=== PATIENT | male | born 1970 | race Caucasian/White ===

== ENCOUNTER 2018-05-18 04:17 | Emergency (ER) | payer OTHER ==
[~2018-05-18] VITALS: Ht 193 cm; Wt 105.0 kg
[~2018-05-18 04:17] MED LIST: CEPH500C5 PO; VARE0.5T PO
[2018-05-18 04:19] VITALS: BP 125/72
== END 2018-05-18 05:11 | disposition home or self-care (01) ==
LOC: ER 04:18
DX: M25.531 Pain in right wrist (principal); E78.00 Pure hypercholesterolemia, unspecified; I10 Essential (primary) hypertension; G89.29 Other chronic pain; Z98.890 Other specified postprocedural states; Z91.013 Allergy to seafood; Z91.030 Bee allergy status; Z79.2 Long term (current) use of antibiotics; Z79.899 Other long term (current) drug therapy; Y08.89XA Assault by other specified means, initial encounter; Y93.89 Activity, other specified; Y92.89 Other specified places as the place of occurrence of the external cause; Y99.8 Other external cause status
CPT/HCPCS: 29125; 73110; 99283

== ENCOUNTER 2020-02-10 23:10 | Outpatient (CLI) | payer BC ==
[~2020-02-10 23:10] MED LIST changes: -CEPH500C5 PO
== END 2020-02-10 23:59 | disposition home or self-care (01) ==
LOC: RAD 23:10
DX: M77.31 Calcaneal spur, right foot (principal); M79.671 Pain in right foot
CPT/HCPCS: 73630

== ENCOUNTER 2020-02-18 23:21 | Outpatient (CLI) | payer BC ==
[2020-02-19 03:41] LABS: BASOPHILS # (AUTO) 0.1 X10'3 (0-0.2); BASOPHILS % (AUTO) 0.6 % (0-1); EOSINOPHILS # (AUTO) 0.2 X10'3 (0-0.9); EOSINOPHILS % (AUTO) 1.5 % (0-6); HEMATOCRIT 45.7 % (42.0-52.0); HEMOGLOBIN 15.6 g/dl (14.0-17.9); LYMPHOCYTES % (AUTO) 35.2 % (21-51); MEAN CORPUSCULAR HEMOGLOBIN 32.3 PG (27.0-31.0); MEAN CORPUSCULAR HGB CONC 34.1 g/dL (33.0-36.5); MEAN CORPUSCULAR VOLUME 94.7 FL (78-98); MEAN PLATELET VOLUME 7.8 FL (7.4-10.4); MONOCYTES # (AUTO) 0.6 X10'3 (0-0.9); MONOCYTES % (AUTO) 5.7 % (2-12); NEUTROPHILS # (AUTO) 6.5 X10'3 (1.8-7.7); PLATELET COUNT 247 X10'3 (140-440); RED BLOOD COUNT 4.83 X10'6 (4.70-6.10); RED CELL DISTRIBUTION WIDTH 13.9 % (11.5-14.5); WHITE BLOOD COUNT 11.4 X10'3 (4.5-11.0)
[2020-02-19 03:57] LABS: ALANINE AMINOTRANSFERASE 34 U/L (12-78); ALBUMIN/GLOBULIN RATIO 1.2 (1.1-1.5); ALKALINE PHOSPHATASE 72 IU/L (46-116); ANION GAP 10 (8-16); ASPARTATE AMINO TRANSFERASE 10 U/L (10-37); BILIRUBIN,TOTAL 0.2 MG/DL (0.1-1.0); BLOOD UREA NITROGEN 17 MG/DL (7-18); BUN/CREATININE RATIO 15.9 (5.4-32.0); CALCIUM 9.3 MG/DL (8.5-10.1); CHLORIDE 103 MMOL/L (99-107); CHOL/HDL RATIO 11.8 (0.00-4.99); CHOLESTEROL 272 MG/DL (0-200); CREATININE 1.07 MG/DL (0.60-1.10); GLUCOSE 143 MG/DL (70-104); HDL CHOLESTEROL 23 MG/DL (35-60); LDL CHOLESTEROL 193 MG/DL (50-100); POTASSIUM 3.6 MMOL/L (3.5-5.1); SODIUM 139 MMOL/L (135-145); TOTAL CARBON DIOXIDE 26.3 MMOL/L (24-32); TOTAL PROTEIN 7.4 G/DL (6.4-8.2); TRIGLYCERIDES 484 MG/DL (20-135); eGFR 73 ML/MIN
== END 2020-02-18 23:59 | disposition home or self-care (01) ==
LOC: LAB 23:21
PROVIDERS: ATTEND Family Medicine
DX: Z00.00 Encounter for general adult medical examination without abnormal findings (principal)
CPT/HCPCS: 36415; 80053; 80061; 85025

== ENCOUNTER 2020-05-22 00:05 | Outpatient (CLI) | payer BC ==
[2020-05-22 13:40] LABS: ALANINE AMINOTRANSFERASE 39 U/L (12-78); ALBUMIN 4.3 G/DL (3.4-5.0); ALBUMIN/GLOBULIN RATIO 1.2 (1.1-1.5); ALKALINE PHOSPHATASE 60 IU/L (46-116); ASPARTATE AMINO TRANSFERASE 23 U/L (10-37); BILIRUBIN,DIRECT 0.1 MG/DL (0-0.3); BILIRUBIN,TOTAL 0.5 MG/DL (0.1-1.0); CHOL/HDL RATIO 7.1 (0.00-4.99); CHOLESTEROL 220 MG/DL (0-200); HDL CHOLESTEROL 31 MG/DL (35-60); LDL CHOLESTEROL 145 MG/DL (50-100); TOTAL PROTEIN 7.8 G/DL (6.4-8.2); TRIGLYCERIDES 227 MG/DL (20-135)
== END 2020-05-22 23:59 | disposition home or self-care (01) ==
LOC: LAB 00:05
PROVIDERS: ATTEND Family Medicine
DX: E78.5 Hyperlipidemia, unspecified (principal)
CPT/HCPCS: 36415; 80061; 80076

== ENCOUNTER 2021-06-22 05:03 | Emergency (ER) | payer BC ==
[~2021-06-22] VITALS: Ht 193 cm; Wt 113.6 kg
[2021-06-22 05:08] VITALS: BP 144/91
== END 2021-06-22 06:30 | disposition home or self-care (01) ==
LOC: ER 05:03
DX: B34.9 Viral infection, unspecified (principal); Z20.822 Contact with and (suspected) exposure to COVID-19; E78.00 Pure hypercholesterolemia, unspecified; I10 Essential (primary) hypertension; G89.29 Other chronic pain; Z91.013 Allergy to seafood; Z98.890 Other specified postprocedural states
CPT/HCPCS: 87635; 99283; C9803

== ENCOUNTER 2021-07-26 06:33 | Emergency (ER) | payer BC ==
[~2021-07-26] VITALS: Ht 193 cm; Wt 115.7 kg
[2021-07-26 06:36] VITALS: BP 142/79
[2021-07-26] MEDS ORDERED: PRED20TA PO (06:44)
[2021-07-26] MEDS: dexamethasone sod phosphate 10mg/ml inj PO STA (06:49)
== END 2021-07-26 06:56 | disposition home or self-care (01) ==
LOC: ER 06:34
DX: L23.7 Allergic contact dermatitis due to plants, except food (principal); I10 Essential (primary) hypertension; G89.29 Other chronic pain; M54.9 Dorsalgia, unspecified; E78.00 Pure hypercholesterolemia, unspecified; F17.210 Nicotine dependence, cigarettes, uncomplicated; Z91.013 Allergy to seafood; Z91.030 Bee allergy status
CPT/HCPCS: 99283; J1100

== ENCOUNTER 2021-08-04 06:55 | Outpatient (CLI) | payer BC ==
[~2021-08-04 06:55] MED LIST changes: +PRED20TA PO
[2021-08-04 07:50] LABS: BASOPHILS # (AUTO) 0.1 X10'3 (0-0.2); BASOPHILS % (AUTO) 0.5 % (0-1); EOSINOPHILS # (AUTO) 0.2 X10'3 (0-0.9); EOSINOPHILS % (AUTO) 1.4 % (0-6); HEMATOCRIT 43.9 % (42.0-52.0); HEMOGLOBIN 14.9 g/dl (14.0-17.9); LYMPHOCYTES # (AUTO) 4.4 X10'3 (1.1-4.8); LYMPHOCYTES % (AUTO) 36.2 % (21-51); MEAN CORPUSCULAR HEMOGLOBIN 32.4 PG (27.0-31.0); MEAN CORPUSCULAR VOLUME 95.4 FL (78-98); MEAN PLATELET VOLUME 7.8 FL (7.4-10.4); MONOCYTES # (AUTO) 0.9 X10'3 (0-0.9); MONOCYTES % (AUTO) 7.9 % (2-12); NEUTROPHILS # (AUTO) 6.5 X10'3 (1.8-7.7); PLATELET COUNT 280 X10'3 (140-440); RED CELL DISTRIBUTION WIDTH 14.3 % (11.5-14.5); WHITE BLOOD COUNT 12.1 X10'3 (4.5-11.0)
[2021-08-04 07:56] LABS: ALANINE AMINOTRANSFERASE 104 U/L (12-78); ALBUMIN/GLOBULIN RATIO 1.4 (1.1-1.5); ANION GAP 11 (8-16); ASPARTATE AMINO TRANSFERASE 60 U/L (10-37); BILIRUBIN,TOTAL 0.2 MG/DL (0.1-1.0); BLOOD UREA NITROGEN 16 MG/DL (7-18); BUN/CREATININE RATIO 15.7 (5.4-32.0); CALCIUM 8.7 MG/DL (8.5-10.1); CHLORIDE 105 MMOL/L (99-107); CHOL/HDL RATIO 7.2 (0.00-4.99); CHOLESTEROL 201 MG/DL (0-200); CREATININE 1.02 MG/DL (0.60-1.10); GLUCOSE 102 MG/DL (70-104); HDL CHOLESTEROL 28 MG/DL (35-60); LDL CHOLESTEROL 109 MG/DL (50-100); POTASSIUM 3.9 MMOL/L (3.5-5.1); SODIUM 142 MMOL/L (135-145); TOTAL CARBON DIOXIDE 25.8 MMOL/L (24-32); TOTAL PROTEIN 6.8 G/DL (6.4-8.2); TRIGLYCERIDES 422 MG/DL (20-135); eGFR 77 ML/MIN
== END 2021-08-04 23:59 | disposition home or self-care (01) ==
LOC: LAB 06:55
PROVIDERS: ATTEND Physician Assistant
DX: E78.5 Hyperlipidemia, unspecified (principal); Z76.89 Persons encountering health services in other specified circumstances
CPT/HCPCS: 36415; 80053; 80061; 85025

== ENCOUNTER 2021-11-09 05:24 | Emergency (ER) | payer BC ==
[~2021-11-09] VITALS: Ht 193 cm; Wt 115.5 kg
[~2021-11-09 05:24] MED LIST changes: -PRED20TA PO
[2021-11-09 05:28] VITALS: BP 146/74
[2021-11-09] MEDS ORDERED: SULF1TAB49 PO (06:14)
[2021-11-09] MEDS ORDERED: CEPH-585 PO (06:14)
[2021-11-09] MEDS ORDERED: cephalexin 500mg capsule PO ONE (06:15)
[2021-11-09] MEDS ORDERED: sulfamethoxazole/trimethoprim DS (800/160mg) tablet PO ONE (06:15)
== END 2021-11-09 06:25 | disposition home or self-care (01) ==
LOC: ER 05:24
DX: L03.031 Cellulitis of right toe (principal); M79.674 Pain in right toe(s); Z72.89 Other problems related to lifestyle; Z91.030 Bee allergy status; Z91.013 Allergy to seafood; Z79.2 Long term (current) use of antibiotics; Z79.899 Other long term (current) drug therapy
CPT/HCPCS: 73660; 82948; 99283

== ENCOUNTER 2022-02-21 04:20 | Emergency (ER) | payer BC ==
[~2022-02-21] VITALS: Ht 193 cm; Wt 102.7 kg
[~2022-02-21 04:20] MED LIST changes: +CEPH-585 PO
[2022-02-21] MEDS ORDERED: ondansetron/PF 4mg/2ml inj IV ONE (04:30)
[2022-02-21] MEDS ORDERED: morphine 2 MG/ML inj. syringe IV PRN (04:30)
[2022-02-21] MEDS ORDERED: normal saline 1000ML IV soln IVB ONE (04:30)
[2022-02-21] MEDS ORDERED: piperacillin/tazo 3.375gm/50ml 50 ML IV ONE (04:35)
[2022-02-21] MEDS ORDERED: iohexol 350MG/ML 100ml bottle IV ONE (04:41)
[2022-02-21 05:20] LABS: BASOPHILS # (AUTO) 0.1 X10'3 (0-0.2); BASOPHILS % (AUTO) 0.8 % (0-1); EOSINOPHILS # (AUTO) 0.1 X10'3 (0-0.9); EOSINOPHILS % (AUTO) 1.6 % (0-6); HEMATOCRIT 42.6 % (42.0-52.0); HEMOGLOBIN 15.1 g/dl (14.0-17.9); LYMPHOCYTES # (AUTO) 2.3 X10'3 (1.1-4.8); LYMPHOCYTES % (AUTO) 25.6 % (21-51); MEAN CORPUSCULAR HEMOGLOBIN 33.7 PG (27.0-31.0); MEAN CORPUSCULAR HGB CONC 35.5 g/dL (33.0-36.5); MEAN PLATELET VOLUME 7.7 FL (7.4-10.4); MONOCYTES # (AUTO) 0.7 X10'3 (0-0.9); MONOCYTES % (AUTO) 8.4 % (2-12); NEUTROPHILS # (AUTO) 5.6 X10'3 (1.8-7.7); NEUTROPHILS % (AUTO) 63.6 % (42-75); PLATELET COUNT 268 X10'3 (140-440); RED BLOOD COUNT 4.48 X10'6 (4.70-6.10); RED CELL DISTRIBUTION WIDTH 14.2 % (11.5-14.5); WHITE BLOOD COUNT 8.8 X10'3 (4.5-11.0)
[2022-02-21 05:23] LABS: APTT 32 SECONDS (22-32)
[2022-02-21 05:26] LABS: ALBUMIN 4.1 G/DL (3.4-5.0); ANION GAP 9 (8-16); BILIRUBIN,TOTAL 0.3 MG/DL (0.1-1.0); BLOOD UREA NITROGEN 17 MG/DL (7-18); BUN/CREATININE RATIO 15.6 (5.4-32.0); CALCIUM 8.9 MG/DL (8.5-10.1); CHLORIDE 102 MMOL/L (99-107); CREATININE 1.09 MG/DL (0.60-1.10); GLUCOSE 105 MG/DL (70-104); MAGNESIUM 2.1 MG/DL (1.5-2.4); POTASSIUM 3.5 MMOL/L (3.5-5.1); SODIUM 137 MMOL/L (135-145); TOTAL CARBON DIOXIDE 26.1 MMOL/L (24-32); TOTAL PROTEIN 7.4 G/DL (6.4-8.2); eGFR 71 ML/MIN
[2022-02-21 05:27] LABS: ALANINE AMINOTRANSFERASE 79 U/L (12-78); ALBUMIN/GLOBULIN RATIO 1.2 (1.1-1.5); ALKALINE PHOSPHATASE 70 IU/L (46-116); ASPARTATE AMINO TRANSFERASE 28 U/L (10-37); LIPASE 147 U/L (73-393)
[2022-02-21 06:45] VITALS: BP 142/75
[2022-02-21 07:16] LABS: CLARITY,URINE CLEAR (Clear); COLOR,URINE YELLOW (Yellow); GLUCOSE, URINE NEGATIVE (Neg); KETONES,URINE NEGATIVE (Neg); LEUKOCYTE ESTERASE ,URINE NEGATIVE (Neg); NITRITES, URINE NEGATIVE (Neg); OCCULT BLOOD,URINE NEGATIVE (Neg); PROTEIN,URINE NEGATIVE (Neg); UROBILINOGEN,URINE 0.2 E.U/dL (0.2-1.0)
[2022-02-21 07:20] LABS: UA COLLECTION TYPE CLN CATCH MIDSTREAM
[2022-02-21] MEDS ORDERED: AMOX-117 PO (08:20)
== END 2022-02-21 08:43 | disposition admitted as inpatient to this hospital (09) ==
LOC: ER 04:20
DX: R10.31 Right lower quadrant pain (principal); Z20.822 Contact with and (suspected) exposure to COVID-19; E78.00 Pure hypercholesterolemia, unspecified; I10 Essential (primary) hypertension; G89.29 Other chronic pain; Z98.890 Other specified postprocedural states; Z85.9 Personal history of malignant neoplasm, unspecified; Z72.89 Other problems related to lifestyle; Z91.030 Bee allergy status; Z91.013 Allergy to seafood; Z79.2 Long term (current) use of antibiotics; Z79.899 Other long term (current) drug therapy
CPT/HCPCS: 36415; 74177; 80053; 81003; 83690; 83735; 85025; 85610; 85730; 87811; 96365; 99285; J2543; J3490; J7030; Q9967

== ENCOUNTER 2022-03-22 09:04 | Outpatient (CLI) | payer BC | END 2022-03-22 23:59 | disposition home or self-care (01) | LOC: RAD 09:04 | PROVIDERS: ATTEND Physician Assistant | DX: M47.812 Spondylosis without myelopathy or radiculopathy, cervical region (principal); M48.02 Spinal stenosis, cervical region; M25.78 Osteophyte, vertebrae | CPT/HCPCS: 72052 ==

== ENCOUNTER → 2022-06-24 | Day surgery (SDC) | payer BC ==
[2022-06-20 10:42] LABS: BASOPHILS # (AUTO) 0.1 X10'3 (0-0.2); BASOPHILS % (AUTO) 0.4 % (0-1); EOSINOPHILS # (AUTO) 0.1 X10'3 (0-0.9); EOSINOPHILS % (AUTO) 0.7 % (0-6); LYMPHOCYTES # (AUTO) 2.2 X10'3 (1.1-4.8); LYMPHOCYTES % (AUTO) 15.8 % (21-51); MEAN CORPUSCULAR HEMOGLOBIN 31.2 PG (27.0-31.0); MEAN CORPUSCULAR HGB CONC 33.3 g/dL (33.0-36.5); MEAN CORPUSCULAR VOLUME 93.6 FL (78-98); MEAN PLATELET VOLUME 8.1 FL (7.4-10.4); MONOCYTES # (AUTO) 0.6 X10'3 (0-0.9); MONOCYTES % (AUTO) 4.3 % (2-12); NEUTROPHILS # (AUTO) 10.9 X10'3 (1.8-7.7); NEUTROPHILS % (AUTO) 78.8 % (42-75); PRE OP HEMATOCRIT 48.7 % (42.0-52.0); PRE OP HEMOGLOBIN 16.2 g/dL (14.0-17.9); PRE OP PLATELET COUNT 257 X10'3 (140-440); RED CELL DISTRIBUTION WIDTH 14.6 % (11.5-14.5)
[2022-06-20 10:58] LABS: ALBUMIN 4.6 G/DL (3.4-5.0); ALBUMIN/GLOBULIN RATIO 1.4 (1.1-1.5); ALKALINE PHOSPHATASE 50 IU/L (46-116); BLOOD UREA NITROGEN 11 MG/DL (7-18); CHLORIDE 102 MMOL/L (99-107); PRE OP ALT 36 U/L (30-65); PRE OP ANION GAP 9 (8-16); PRE OP AST 22 U/L (10-37); PRE OP BILIRUB, TOTAL 0.4 MG/DL (0.0-1.0); PRE OP GLUCOSE 101 MG/DL (70-104); PRE OP POTASSIUM 4.3 MMOL/L (3.4-5.1); PRE OP SODIUM 141 MMOL/L (135-145); TOTAL CARBON DIOXIDE 30.4 MMOL/L (24-32); TOTAL PROTEIN 7.8 G/DL (6.4-8.2); eGFR 70 ML/MIN
[~2022-06-24] VITALS: Ht 190.5 cm; Wt 98.4 kg
[~2022-06-24] MED LIST changes: +BUPIVAcaine/PF 5 mg/ml 10ml ONE; -CEPH-585 PO; +CHOL50004 PO; +FENO145T25 PO; +FENTANYL CITRATE/PF 50 MCG/1 ML VIAL ONE; +LIDOcaine 0.5% (5mg/ml) 50ml vial ONE; -VARE0.5T PO; +[UNRECOGNIZED DRUG - OTHER] PO; +acetaminophen 1,000mg/100ml IV 100 ML IV PRN; +ceFAZolin inj. 2,000 MG in dextrose 5%-water 100 ML IV ONE; +famotidine 20mg tablet PO ONE; +hydrALAZINE 20mg/ml inj. IV PRN; +labetalol 20mg/4ml (5mg/ml) syringe IV PRN; +meperidine/PF 25mg/ml syringe IV PRN; +midazolam 1 mg/ML 2ml injection IV ONE; +midazolam 1 mg/ML 2ml injection ONE; +morphine 2 MG/ML inj. syringe IV PRN; +morphine 4 MG/ML inj SYRINge IV PRN; +ondansetron/PF 4mg/2ml inj IV PRN; +proCHLORperazine 10 MG/2 ml inj IV PRN; +propofol inj 20 ML IV ONE; +ringers solution, lacted 1,000 ML IV SCH
[2022-06-24 07:30] VITALS: BP 128/78
[2022-06-24 12:10] VITALS: BP 128/80
--- NOTE | 2022-06-24 12:10 | NUR ---
Received from OR via [facility] , accompanied by Anesthesiologist DR OLMEDO and report given by Anesthesiolgist. PT AWAKE, COMFORTABLE DENIES PAIN AND NAUSEA. CECILIO Gonzalez WRIST CDI.
[2022-06-24 12:20] VITALS: BP 122/71
[2022-06-24 12:50] VITALS: BP 125/80
--- NOTE | 2022-06-24 12:50 | NUR ---
PT WAS DISCHARGED TO HOME SAFELY VIA W/C . PT STATES READINESS FOR DC TO HOME. ALL BELONGINGS W/ PT UPON DC TO HOME INCLUDING GLASSES. DRSG REMAINS CDI. PT TOLERATED JUICE. PT ACCOMPANIED BY SPOUSE.
== END | disposition home or self-care (01) ==
LOC: PAS 07:15
PROVIDERS: ATTEND Orthopaedic Surgery Hand Surgery
DX: G56.01 Carpal tunnel syndrome, right upper limb (principal); J44.9 Chronic obstructive pulmonary disease, unspecified; F41.9 Anxiety disorder, unspecified; F17.210 Nicotine dependence, cigarettes, uncomplicated; Z91.030 Bee allergy status; Z91.018 Allergy to other foods; Z98.890 Other specified postprocedural states; Z72.89 Other problems related to lifestyle; Z79.899 Other long term (current) drug therapy
CPT/HCPCS: 29848; 36415; 71046; 80053; 82948; 85025; 93005; J0690; J2250; J2704; J3010; J3490; J7030; J7060; J7120; Z7506; Z7512; A4215; A7000

== ENCOUNTER 2022-09-13 07:46 | Outpatient (CLI) | payer BC ==
[~2022-09-13 07:46] MED LIST changes: -BUPIVAcaine/PF 5 mg/ml 10ml ONE; -FENTANYL CITRATE/PF 50 MCG/1 ML VIAL ONE; -LIDOcaine 0.5% (5mg/ml) 50ml vial ONE; -acetaminophen 1,000mg/100ml IV 100 ML IV PRN; -ceFAZolin inj. 2,000 MG in dextrose 5%-water 100 ML IV ONE; -famotidine 20mg tablet PO ONE; -hydrALAZINE 20mg/ml inj. IV PRN; -labetalol 20mg/4ml (5mg/ml) syringe IV PRN; -meperidine/PF 25mg/ml syringe IV PRN; -midazolam 1 mg/ML 2ml injection IV ONE; -midazolam 1 mg/ML 2ml injection ONE; -morphine 2 MG/ML inj. syringe IV PRN; -morphine 4 MG/ML inj SYRINge IV PRN; -ondansetron/PF 4mg/2ml inj IV PRN; -proCHLORperazine 10 MG/2 ml inj IV PRN; -propofol inj 20 ML IV ONE; -ringers solution, lacted 1,000 ML IV SCH
== END 2022-09-13 23:59 | disposition home or self-care (01) ==
LOC: RAD 07:46
PROVIDERS: ATTEND Physician Assistant
DX: N50.89 Other specified disorders of the male genital organs (principal); R10.32 Left lower quadrant pain; N50.812 Left testicular pain
CPT/HCPCS: 76870; 76881; 93976

== ENCOUNTER 2022-09-19 09:20 | Outpatient (CLI) | payer BC ==
[2022-09-19 09:43] LABS: BASOPHILS # (AUTO) 0.1 X10'3 (0-0.2); BASOPHILS % (AUTO) 0.9 % (0-1); EOSINOPHILS # (AUTO) 0.1 X10'3 (0-0.9); EOSINOPHILS % (AUTO) 1.3 % (0-6); HEMATOCRIT 46.2 % (42.0-52.0); HEMOGLOBIN 15.8 g/dl (14.0-17.9); LYMPHOCYTES # (AUTO) 2.7 X10'3 (1.1-4.8); LYMPHOCYTES % (AUTO) 28.1 % (21-51); MEAN CORPUSCULAR HEMOGLOBIN 31.7 PG (27.0-31.0); MEAN CORPUSCULAR HGB CONC 34.2 g/dL (33.0-36.5); MEAN CORPUSCULAR VOLUME 92.6 FL (78-98); MEAN PLATELET VOLUME 7.5 FL (7.4-10.4); MONOCYTES # (AUTO) 0.6 X10'3 (0-0.9); MONOCYTES % (AUTO) 6.2 % (2-12); NEUTROPHILS # (AUTO) 6.1 X10'3 (1.8-7.7); NEUTROPHILS % (AUTO) 63.5 % (42-75); PLATELET COUNT 296 X10'3 (140-440); RED BLOOD COUNT 4.98 X10'6 (4.70-6.10); RED CELL DISTRIBUTION WIDTH 14.8 % (11.5-14.5); WHITE BLOOD COUNT 9.6 X10'3 (4.5-11.0)
[2022-09-19 09:52] LABS: ALANINE AMINOTRANSFERASE 22 U/L (12-78); ALBUMIN 4.4 G/DL (3.4-5.0); ALBUMIN/GLOBULIN RATIO 1.3 (1.1-1.5); ALKALINE PHOSPHATASE 45 IU/L (46-116); ANION GAP 9 (8-16); ASPARTATE AMINO TRANSFERASE 22 U/L (10-37); BILIRUBIN,TOTAL 0.3 MG/DL (0.1-1.0); BLOOD UREA NITROGEN 14 MG/DL (7-18); BUN/CREATININE RATIO 13.5 (10.0-20.0); CALCIUM 9.6 MG/DL (8.5-10.1); CHLORIDE 106 MMOL/L (99-107); CHOL/HDL RATIO 7.3 (0.00-4.99); CHOLESTEROL 249 MG/DL (0-200); CREATININE 1.04 MG/DL (0.60-1.10); GLUCOSE 97 MG/DL (70-104); HDL CHOLESTEROL 34 MG/DL (35-60); LDL CHOLESTEROL 168 MG/DL (50-100); SODIUM 142 MMOL/L (135-145); TOTAL CARBON DIOXIDE 27.3 MMOL/L (24-32); TOTAL PROTEIN 7.8 G/DL (6.4-8.2); TRIGLYCERIDES 281 MG/DL (20-135); eGFR 75 ML/MIN
[2022-09-19 10:18] LABS: POTASSIUM 4.5 MMOL/L (3.5-5.1)
== END 2022-09-19 23:59 | disposition home or self-care (01) ==
LOC: LAB 09:20
PROVIDERS: ATTEND Physician Assistant
DX: E78.5 Hyperlipidemia, unspecified (principal); Z76.89 Persons encountering health services in other specified circumstances
CPT/HCPCS: 36415; 80053; 80061; 85025

== ENCOUNTER 2022-09-27 07:46 | Outpatient (CLI) | payer BC ==
[2022-09-27 08:22] LABS: BASOPHILS # (AUTO) 0.1 X10'3 (0-0.2); BASOPHILS % (AUTO) 1.1 % (0-1); EOSINOPHILS # (AUTO) 0.1 X10'3 (0-0.9); EOSINOPHILS % (AUTO) 1.2 % (0-6); HEMATOCRIT 46.3 % (42.0-52.0); HEMOGLOBIN 15.7 g/dl (14.0-17.9); LYMPHOCYTES # (AUTO) 2.4 X10'3 (1.1-4.8); MEAN CORPUSCULAR HEMOGLOBIN 31.9 PG (27.0-31.0); MEAN CORPUSCULAR VOLUME 93.8 FL (78-98); MEAN PLATELET VOLUME 7.4 FL (7.4-10.4); MONOCYTES # (AUTO) 0.6 X10'3 (0-0.9); MONOCYTES % (AUTO) 5.8 % (2-12); NEUTROPHILS # (AUTO) 6.9 X10'3 (1.8-7.7); NEUTROPHILS % (AUTO) 67.9 % (42-75); PLATELET COUNT 275 X10'3 (140-440); RED BLOOD COUNT 4.93 X10'6 (4.70-6.10); RED CELL DISTRIBUTION WIDTH 14.8 % (11.5-14.5); WHITE BLOOD COUNT 10.2 X10'3 (4.5-11.0)
[2022-09-27 08:56] LABS: ALBUMIN 4.4 G/DL (3.4-5.0); ANION GAP 10 (8-16); BETA HCG,QUANTITATIVE < 1.0 mIU/ml; BLOOD UREA NITROGEN 11 MG/DL (7-18); BUN/CREATININE RATIO 11.5 (10.0-20.0); CALCIUM 9.6 MG/DL (8.5-10.1); CHLORIDE 103 MMOL/L (99-107); CREATININE 0.96 MG/DL (0.60-1.10); GLUCOSE 109 MG/DL (70-104); LACTATE DEHYDROGENASE 147 U/L (85-227); POTASSIUM 4.2 MMOL/L (3.5-5.1); SODIUM 140 MMOL/L (135-145); TOTAL CARBON DIOXIDE 27.2 MMOL/L (24-32); eGFR 82 ML/MIN
== END 2022-09-27 23:59 | disposition home or self-care (01) ==
LOC: LAB 07:46
PROVIDERS: ATTEND Urology
DX: D49.59 Neoplasm of unspecified behavior of other genitourinary organ (principal)
CPT/HCPCS: 36415; 80048; 82103; 83615; 84702; 85025

== ENCOUNTER 2022-10-17 10:17 | Day surgery (SDC) | payer BC ==
[2022-10-11 08:15] LABS: BASOPHILS # (AUTO) 0.1 X10'3 (0-0.2); BASOPHILS % (AUTO) 0.5 % (0-1); EOSINOPHILS # (AUTO) 0.1 X10'3 (0-0.9); EOSINOPHILS % (AUTO) 1.3 % (0-6); LYMPHOCYTES # (AUTO) 2.4 X10'3 (1.1-4.8); LYMPHOCYTES % (AUTO) 24.5 % (21-51); MEAN CORPUSCULAR HEMOGLOBIN 31.8 PG (27.0-31.0); MEAN CORPUSCULAR HGB CONC 33.6 g/dL (33.0-36.5); MEAN CORPUSCULAR VOLUME 94.8 FL (78-98); MEAN PLATELET VOLUME 7.3 FL (7.4-10.4); MONOCYTES # (AUTO) 0.7 X10'3 (0-0.9); MONOCYTES % (AUTO) 7.5 % (2-12); NEUTROPHILS # (AUTO) 6.4 X10'3 (1.8-7.7); NEUTROPHILS % (AUTO) 66.2 % (42-75); PRE OP HEMATOCRIT 45.5 % (42.0-52.0); PRE OP HEMOGLOBIN 15.3 g/dL (14.0-17.9); PRE OP PLATELET COUNT 304 X10'3 (140-440)
[2022-10-11 08:30] LABS: ALBUMIN 4.4 G/DL (3.4-5.0); ALBUMIN/GLOBULIN RATIO 1.4 (1.1-1.5); ALKALINE PHOSPHATASE 45 IU/L (46-116); BLOOD UREA NITROGEN 11 MG/DL (7-18); BUN/CREATININE RATIO 10.5 (10.0-20.0); CALCIUM 10.1 MG/DL (8.5-10.1); CHLORIDE 106 MMOL/L (99-107); CREATININE 1.05 MG/DL (0.60-1.10); PRE OP ALT 19 U/L (30-65); PRE OP ANION GAP 8 (8-16); PRE OP AST 15 U/L (10-37); PRE OP BILIRUB, TOTAL 0.4 MG/DL (0.0-1.0); PRE OP GLUCOSE 67 MG/DL (70-104); PRE OP POTASSIUM 4.1 MMOL/L (3.4-5.1); PRE OP SODIUM 144 MMOL/L (135-145); TOTAL CARBON DIOXIDE 29.9 MMOL/L (24-32); TOTAL PROTEIN 7.5 G/DL (6.4-8.2); eGFR 74 ML/MIN
[~2022-10-17] VITALS: Ht 193 cm; Wt 97.9 kg
[~2022-10-17 10:17] MED LIST changes: +ATOR40TA72 PO; +cefazolin 2gm/D5W 100mL 100 ML IV ONE; +famotidine 20mg tablet PO ONE; +ringers solution, lacted 1,000 ML IV SCH
[2022-10-17 10:20] VITALS: BP 137/73
[2022-10-17] MEDS ORDERED: diazepam 5mg tablet PO ONE (10:55)
[2022-10-17] MEDS ORDERED: BUPIVAcaine 0.5% inj/PF 30 ML ONE (13:05)
[2022-10-17] MEDS ORDERED: sevoflurane 250ml liquid IH ONE (13:32)
[2022-10-17] MEDS ORDERED: LIDOcaine 2% (20mg/ml) 5ml vial ONE (13:32)
[2022-10-17] MEDS ORDERED: midazolam 1 mg/ML 2ml injection ONE (13:37)
[2022-10-17] MEDS ORDERED: fentaNYL /PF 50mcg/ml 5ml ampule ONE (13:37)
[2022-10-17] MEDS ORDERED: propofol inj 20 ML IV ONE (13:39)
[2022-10-17 14:30] VITALS: BP 124/73
[2022-10-17] MEDS ORDERED: BUPIVAcaine 0.5% inj/PF 30 ml vial IJ ONE (14:30)
--- NOTE | 2022-10-17 14:30 | NUR ---
PT ARRIVED TO RR VIA GURNEY, SLEEPY-LMA STILL PRESENT, VSS, SMALL INCISION TO LEFT GROIN-DERMABOND CDI, SCDS ON, 20G PIV TO RIGHT FA, NO PAIN.
[2022-10-17 14:40] VITALS: BP 124/78
--- NOTE | 2022-10-17 14:40 | NUR ---
PT AWAKE, LMA OUT, VSS, DENIES PAIN-JUST "PRESSURE"
[2022-10-17] MEDS ORDERED: ondansetron/PF 4mg/2ml inj IV PRN (14:45)
[2022-10-17] MEDS ORDERED: proCHLORperazine 10 MG/2 ml inj IV PRN (14:45)
[2022-10-17] MEDS ORDERED: morphine 4 MG/ML inj SYRINge IV PRN (14:45)
[2022-10-17] MEDS ORDERED: ringers solution, lacted 1,000 ML IV SCH (14:45)
[2022-10-17] MEDS ORDERED: morphine 2 MG/ML inj. syringe IV PRN (14:45)
[2022-10-17] MEDS ORDERED: meperidine/PF 25mg/ml syringe IV PRN ×3 (14:45)
[2022-10-17 14:50] VITALS: BP 137/82
[2022-10-17 15:00] VITALS: BP 132/82
[2022-10-17 15:20] VITALS: BP 118/76
--- NOTE | 2022-10-17 15:20 | NUR ---
PT UP AND GETTING DRESSED, NO CHANGES IN INCISION-CDI, VSS, PAIN MANAGEABLE- REFUSING ANYTHING FOR PAIN, GIVEN D/C INSTRUCTIONS-ALL QUESTIONS ANSWERED, TAKEN VIA W/C WITH ALL BELONGINGS TO VEHICLE FOR TRANSPORT HOME
== END 2022-10-17 15:20 | disposition home or self-care (01) ==
LOC: PAS 10:17
PROVIDERS: ATTEND Urology
DX: D49.59 Neoplasm of unspecified behavior of other genitourinary organ (principal); N44.8 Other noninflammatory disorders of the testis; N50.0 Atrophy of testis; J44.9 Chronic obstructive pulmonary disease, unspecified; G43.909 Migraine, unspecified, not intractable, without status migrainosus; F17.210 Nicotine dependence, cigarettes, uncomplicated; F41.9 Anxiety disorder, unspecified; F43.10 Post-traumatic stress disorder, unspecified; M19.90 Unspecified osteoarthritis, unspecified site; N40.1 Benign prostatic hyperplasia with lower urinary tract symptoms; R39.15 Urgency of urination; R35.0 Frequency of micturition; Z91.030 Bee allergy status; Z91.013 Allergy to seafood; Z79.899 Other long term (current) drug therapy; Z72.89 Other problems related to lifestyle
CPT/HCPCS: 36415; 54530; 80053; 82948; 85025; J0690; J2250; J2704; J3010; J3490; J7030; J7120; S0020; Z7506; Z7512; A4215; A4618; A7000

== ENCOUNTER 2022-10-28 08:05 | Outpatient (CLI) | payer BC ==
[~2022-10-28 08:05] MED LIST changes: -cefazolin 2gm/D5W 100mL 100 ML IV ONE; -famotidine 20mg tablet PO ONE; -ringers solution, lacted 1,000 ML IV SCH
[2022-10-28] MEDS ORDERED: iohexol 300mg/ml 100ml inj. ONE (08:14)
== END 2022-10-28 23:59 | disposition home or self-care (01) ==
LOC: 64 CT 08:05
PROVIDERS: ATTEND Urology
DX: D49.59 Neoplasm of unspecified behavior of other genitourinary organ (principal)
CPT/HCPCS: 74177; J3490; Q9967

== ENCOUNTER 2023-03-20 09:48 | Outpatient (CLI) | payer BC | END 2023-03-20 23:59 | disposition home or self-care (01) | LOC: RAD 09:48 | PROVIDERS: ATTEND Physician Assistant | DX: M25.78 Osteophyte, vertebrae (principal); M54.50 Low back pain, unspecified; I70.0 Atherosclerosis of aorta | CPT/HCPCS: 72100 ==

== ENCOUNTER 2023-09-04 05:18 | Day surgery (SDC) | payer BC ==
[2023-08-28 10:42] LABS: BASOPHILS # (AUTO) 0.1 X10'3 (0-0.2); BASOPHILS % (AUTO) 0.7 % (0-1); EOSINOPHILS # (AUTO) 0.1 X10'3 (0-0.9); LYMPHOCYTES # (AUTO) 3.2 X10'3 (1.1-4.8); LYMPHOCYTES % (AUTO) 23.6 % (21-51); MEAN CORPUSCULAR HGB CONC 34.2 g/dL (33.0-36.5); MEAN CORPUSCULAR VOLUME 93.5 FL (78-98); MEAN PLATELET VOLUME 7.5 FL (7.4-10.4); MONOCYTES # (AUTO) 0.6 X10'3 (0-0.9); MONOCYTES % (AUTO) 4.6 % (2-12); NEUTROPHILS # (AUTO) 9.6 X10'3 (1.8-7.7); NEUTROPHILS % (AUTO) 70.1 % (42-75); PRE OP HEMATOCRIT 43.2 % (42.0-52.0); PRE OP HEMOGLOBIN 14.8 g/dL (14.0-17.9); PRE OP PLATELET COUNT 262 X10'3 (140-440); PRE OP WHITE BLOOD COUNT 13.7 10'3 (4.8-10.8); RED BLOOD COUNT 4.62 X10'6 (4.70-6.10); RED CELL DISTRIBUTION WIDTH 14.5 % (11.5-14.5)
[2023-08-28 10:48] LABS: ALBUMIN 4.2 G/DL (3.4-5.0); ALBUMIN/GLOBULIN RATIO 1.3 (1.1-1.5); ALKALINE PHOSPHATASE 42 IU/L (46-116); BLOOD UREA NITROGEN 12 MG/DL (7-18); BUN/CREATININE RATIO 10.9 (10.0-20.0); CALCIUM 8.9 MG/DL (8.5-10.1); CHLORIDE 107 MMOL/L (99-107); PRE OP ALT 22 U/L (30-65); PRE OP ANION GAP 9 (8-16); PRE OP AST 12 U/L (10-37); PRE OP BILIRUB, TOTAL 0.4 MG/DL (0.0-1.0); PRE OP GLUCOSE 97 MG/DL (70-104); PRE OP SODIUM 145 MMOL/L (135-145); TOTAL CARBON DIOXIDE 28.6 MMOL/L (24-32); TOTAL PROTEIN 7.5 G/DL (6.4-8.2); eGFR 70 ML/MIN
[~2023-09-04] VITALS: Ht 190.5 cm; Wt 97.1 kg
[~2023-09-04 05:18] MED LIST changes: -CHOL50004 PO; -[UNRECOGNIZED DRUG - OTHER] PO
[2023-09-04 05:30] VITALS: BP 121/83; PULSE 70; RESP 16; TEMP 97.8; O2SAT 95
[2023-09-04] MEDS: cefazolin 2gm/D5W 100mL 100 ML IV ONE (06:00)
[2023-09-04] MEDS: famotidine 20mg tablet PO ONE (06:00)
[2023-09-04] MEDS: ringers solution, lacted 1,000 ML IV SCH (06:00)
[2023-09-04] MEDS: BUPIVAcaine/PF 2.5mg/ml (0.25%) 10ml vial ONE (07:52)
[2023-09-04] MEDS: LIDOcaine 2% (20mg/ml) 5ml vial ONE (07:53)
[2023-09-04] MEDS ORDERED: MIDAZolam 1 MG/ML 5ML VIAL ONE (07:55)
[2023-09-04] MEDS ORDERED: fentaNYL/PF 50MCG/1 ML 2ML syringe ONE (07:55)
[2023-09-04] MEDS ORDERED: propofol inj 20 ML IV ONE (08:33)
[2023-09-04] MEDS ORDERED: BUPIVAcaine/PF 2.5mg/ml (0.25%) 10ml vial ONE (08:35)
[2023-09-04 08:42] VITALS: BP 106/66; PULSE 60; RESP 16; O2SAT 97
[2023-09-04 08:50] VITALS: BP 105/70; PULSE 62; RESP 13; O2SAT 95
[2023-09-04 09:00] VITALS: BP 122/68; PULSE 59; RESP 12; O2SAT 97
[2023-09-04 09:10] VITALS: BP 117/74; PULSE 60; RESP 17; O2SAT 96
== END 2023-09-04 09:22 | disposition home or self-care (01) ==
LOC: PAS 05:18
PROVIDERS: ATTEND Orthopaedic Surgery Hand Surgery
DX: G56.02 Carpal tunnel syndrome, left upper limb (principal); M65.331 Trigger finger, right middle finger; J44.9 Chronic obstructive pulmonary disease, unspecified; E78.5 Hyperlipidemia, unspecified; F43.10 Post-traumatic stress disorder, unspecified; F41.9 Anxiety disorder, unspecified; M19.90 Unspecified osteoarthritis, unspecified site; Z79.899 Other long term (current) drug therapy; F17.210 Nicotine dependence, cigarettes, uncomplicated; Z72.89 Other problems related to lifestyle; Z85.47 Personal history of malignant neoplasm of testis; Z91.030 Bee allergy status; Z91.018 Allergy to other foods; Z98.890 Other specified postprocedural states
CPT/HCPCS: 26055; 29848; 36415; 80053; 82948; 85025; 93005; J0690; J2250; J2704; J3010; J3490; J7030; J7120; Z7506; Z7512; A4215; A6449; A7000

== ENCOUNTER 2025-03-05 06:40 | Emergency (ER) | payer BC ==
[~2025-03-05] VITALS: Ht 193 cm; Wt 95.0 kg
--- NOTE | 2025-03-05 06:50 | ELECTROCARDIOGRAPH REPORT ---
[facility] Test Date: 2025-03-05 Test Time: 06:47:55 Pat Name: ROMAN RAYA Department: [facility]-ER Patient ID: [facility]-[id number] Room: Gender: M Telesales Specialist: : [id number] Requested By: GINNA ARREDONDO Order Number: [id number] Reading MD: Measurements Intervals [place] Rate: 70 P: 43 CO: 140 QRS: 32 QRSD: 101 T: 60 QT: 389 QTc: 420 Interpretive Statements Sinus rhythm Atrial premature complexes Baseline wander in lead(s) V4,V5 Please click the below link to view image of tracing.
[2025-03-05 07:05] LABS: MEAN PLATELET VOLUME 7.6 FL (7.4-10.4); RED CELL DISTRIBUTION WIDTH 14.1 % (11.5-14.5)
--- NOTE | 2025-03-05 07:16 | Physician Documentation ---
History of Present Illness General Chief Complaint: Chest Pain Stated Complaint: SEE CHIEF COMPLAINT Time Seen by MD: 07:04 Primary Medical Doctor: [facility] Mode of Arrival: Ambulatory History of Present Illness Initial Comments The patient is a 54-year-old male with a history of [place] in 1996 but no subsequent issues who presents with three days of cough productive of yellowish/green sputum and a feeling of tightness in his chest. He takes no current medications. Medication Reconciliation Allergies: Coded Allergies: Fish Containing Products (Verified Allergy, Unknown, SWELLING OF THROAT, 06/23/22) venom-honey bee (Verified Allergy, Unknown, SWELLING ; TACHYCARDIA, 06/23/22) Scheduled Atorvastatin Calcium (Atorvastatin Calcium), 1 TAB PO HS, (Reported) Fenofibrate Nanocrystallized (Fenofibrate), 1 TAB PO HS, (Reported) Past Medical History Past Medical History: High Cholesterol, Hypertension, Chronic Back Pain, *C ANCER* Past Surgical History: noncontributory, orthopedic surgeries Smoking: Cigarettes Alcohol Use: Sober Lives with: S/O Lives In: Home Occupation: employed Review of Systems ROS Review of 10 systems is negative except as noted in the HPI. Physical Exam Physical Exam Vital Signs: Temperature: 98.5, Source: Temporal, Heart Rate: 74, Respiratory Rate: 18, BP: 131/95, Pulse Oximetry: 99, Weight: 95.000 Oxygen Flow Rate: 0 Physical Exam Physical Exam Vitals and nursing note reviewed. Constitutional: General: Patient is awake, alert, oriented x 4 in no acute distress and well appearing. Speech is clear and lucid. Appearance: Normal appearance. Patient is not ill-appearing, toxic-appearing or diaphoretic. HENT: Head: Normocephalic and atraumatic. Mouth/Throat: Mouth: Mucous membranes are moist. Pharynx: Oropharynx is clear. Eyes: General: No scleral icterus. Extraocular Movements: Extraocular movements intact. Pupils: Pupils are equal, round, and reactive to light. Neck: Supple, no Kernig or Brudzinski sign. Cardiovascular: Rate and Rhythm: Normal rate and regular rhythm. Heart sounds: No murmur heard. Pulmonary: Effort: No respiratory distress. Breath sounds: No wheezing, rhonchi or rales. Abdominal: General: There is no distension. Palpations: There is no fluid wave, hepatomegaly or mass. Tenderness: There is no abdominal tenderness. There is no guarding. Musculoskeletal: General: No swelling or deformity. Skin: Coloration: Skin is not jaundiced. Findings: No erythema or rash. Neurological: Mental Status: Patient is alert. Progress Results/Orders Results/Orders Orders - GINNA ARREDONDO MD Chest,Single View (03/05/25 06:59) Monitor (03/05/25 06:46) Saline Lock (03/05/25 06:46) Oxygen (03/05/25 06:46) Hs Troponin I W Calculations (03/05/25 08:46) Hs Troponin I W Calculations (03/05/25 09:46) Covid19 Binax Poc Result Entry (03/05/25 07:13) Azithromycin Tablet (Zithromax Tablet) (03/05/25 08:35) Prednisone Tablet (Prednisone Tablet) (03/05/25 08:35) Completed Orders - GINNA ARREDONDO MD Chest,Single View (03/05/25 06:59) Cbc/Diff (03/05/25 06:46) BMP (03/05/25 06:46) PBNP (03/05/25 06:46) Electrocardiogram (03/05/25 06:46) Hs Troponin I W Calculations (03/05/25 06:46) Ipratropium/Albuterol Nebule (Ipratrop/A (03/05/25 07:14) Medications Received in ER Medications (Trade) Dose Ordered Sig/Cesilia Route PRN Reason Start Time Stop Time Status Last Admin Dose Admin (ipratrop/ albuterol 0.5-3(2.5) MG/3ml nebule) 3 ml ONCE STAT NEB 03/05/25 07:14 03/05/25 07:21 DC 03/05/25 07:38 3 ML Vital Signs 03/05/25 03/05/25 03/05/25 03/05/25 06:44 06:55 07:39 07:44 Temp 98.5 Pulse 74 70 68 Resp 18 18 16 13 B/P (MAP) 131/95 Pulse Ox 99 96 99 O2 Delivery Room Air* Room Air* O2 Flow Rate 0 0 0 FiO2 21 21 03/05/25 07:50 Temp 98.5 Pulse 66 Resp 12 B/P (MAP) 138/86 (103) Pulse Ox 93 O2 Flow Rate 0 Laboratory Tests Test 03/05/25 06:54 03/05/25 07:50 White Blood Count 10.6 Red Blood Count 4.72 Hemoglobin 15.1 Hematocrit 44.6 Mean Corpuscular Volume 94.4 Mean Corpuscular Hemoglobin 32.0 H Mean Corpuscular Hemoglobin Concent 33.9 Red Cell Distribution Width 14.1 Platelet Count 281 Mean Platelet Volume 7.6 Neutrophils (%) (Auto) 62.2 Lymphocytes (%) (Auto) 29.3 Monocytes (%) (Auto) 6.5 Eosinophils (%) (Auto) 1.3 Basophils (%) (Auto) 0.7 Neutrophils # (Auto) 6.6 Lymphocytes # (Auto) 3.1 Monocytes # (Auto) 0.7 Eosinophils # (Auto) 0.1 Basophils # (Auto) 0.1 CBC Comment Sodium Level 141 Potassium Level 3.9 Chloride Level 105 Carbon Dioxide Level 27.1 Anion Gap 9 Blood Urea Nitrogen 12 Creatinine 0.86 Estimated GFR/1.73 m2 > 90 BUN/Creatinine Ratio 14.0 Glucose Level 112 H Calcium Level 9.6 Troponin I High Sensitivity 4 Pro-B-Type Natriuretic Peptide < 30 Albumin 4.2 Chemistry Comments SARS-CoV-2 Antigen (Rapid) Negative Medical Decision Making Findings EKG medically necessary in the evaluation of chest pain and interpreted by me at the time of patient evaluation. Rhythm is sinus rhythm with a rate of 70, PACs. Impression: Unremarkable EKG. ECG reading does not show any acute signs of obvious ischemia. No evidence of A- V block. No short [place], delta waves, or wide QRS concerning for [id number]-Sigdv. No long QT events on my read. I do not see evidence of Brugada with ST elevations in V1 through V3. No epsilon wave noted. No low voltage suggestive of pericardial effusion. No right ventricular strain pattern. This patient is having exacerbation of COPD. His pain has been ongoing for three days and a single troponin is negative. He improved with a DuoNeb. I am going to start him on a Z-Ian and some prednisone. He is stable for discharge. Departure Disposition: HOME / SELF CARE / HOMELESS Impression: Primary Impression: COPD exacerbation Condition: Stable Referrals: NO PRIMARY CARE PROVIDER (PCP) Prescriptions Azithromycin (Azithromycin) 250 Mg Tablet 1 TAB PO UD for 5 Days, #6 TAB 2 the first day followed by 1 for days 2-5 Prov: GINNA ARREDONDO MD 03/05/25 Prednisone* (Prednisone*) 20 Mg Tablet 1 TAB PO Q12H for 5 Days, #10 TAB Prov: GINNA ARREDONDO MD 03/05/25 Signature Scribe Signature: . Attestation: . GINNA ARREDONDO MD Mar 05, 2025 07:16
[2025-03-05 07:26] LABS: CREATININE 0.86 MG/DL (0.60-1.10); PRO BRAIN NATRIURETIC PEPTIDE < 30 PG/ML (0-125); TOTAL CARBON DIOXIDE 27.1 MMOL/L (24-32); eCRCL 119 ML/MIN; eGFR > 90 ML/MIN
[2025-03-05] MEDS: ipratropium/albuterol 3ml nebule NEB STA (07:38)
[2025-03-05 07:39] VITALS: PULSE 70; RESP 16; O2SAT 96
[2025-03-05 07:44] VITALS: PULSE 68; RESP 13; O2SAT 99
--- NOTE | 2025-03-05 07:59 | RADIOLOGY REPORT ---
EXAM: DI CHEST,SINGLE VIEW Indication: CP Technique: Single frontal view of the chest was obtained Comparison: CHEST,TWO VIEWS on DOS: 06/20/22 FINDINGS: Lines and Tubes: None Lungs: No focal consolidation. Pleura: No effusion. No pneumothorax. Cardiomediastinal contours: Unremarkable Bones: No acute osseous abnormality. IMPRESSION: No acute cardiopulmonary disease.
[2025-03-05] MEDS ORDERED: PRED20TA PO (08:41)
[2025-03-05] MEDS ORDERED: AZIT250T83 PO (08:41)
[2025-03-05 08:50] VITALS: BP 144/85; PULSE 68; RESP 15; TEMP 98.5; O2SAT 96
[2025-03-05] MEDS ORDERED: ALBU18HF2 INH (09:23)
== END 2025-03-05 08:53 | disposition home or self-care (01) ==
LOC: ER 06:41
DX: J44.1 Chronic obstructive pulmonary disease with (acute) exacerbation (principal); E78.00 Pure hypercholesterolemia, unspecified; I10 Essential (primary) hypertension; I25.2 Old myocardial infarction; G89.29 Other chronic pain; F17.210 Nicotine dependence, cigarettes, uncomplicated; Z91.013 Allergy to seafood; Z91.030 Bee allergy status; Z79.899 Other long term (current) drug therapy; Z98.890 Other specified postprocedural states; Z20.822 Contact with and (suspected) exposure to COVID-19
CPT/HCPCS: 36415; 71045; 80048; 83880; 84484; 85025; 87811; 93005; 94640; 99285; J7512; 94760